=== PATIENT | male | born 1935 | race Caucasian/White ===

== ENCOUNTER 2021-02-25 14:12 | Observation (INO) | payer MEDICARE, BC ==
--- NOTE | 2021-02-25 14:38 | ED ---
General Adult HPI - General Chief complaint: Chest Pain Stated complaint: Chest Pain Time Seen by Provider: 02/25/21 14:26 Source: patient Mode of arrival: wheelchair Limitations: no limitations - History of Present Illness Initial comments: Dictation was produced using [employer] dictation software. please excuse any grammatical, word or spelling errors. Chief Complaint: 85-year-old male with extensive history of coronary artery disease presents with chest pain History of Present Illness: Is an 85-year-old male he has history of coronary artery bypass, coronary artery stents presents to the emergency department for chest pain since yesterday. Patient states that he has substernal chest discomfort. No radiation of symptoms to the shoulder job. Patient states that the pain is mild. No associated diaphoresis or nausea. Denies any pleurisy. He states however when he takes a deep breath his pain gets better. The ROS documented in this emergency department record has been reviewed and confirmed by me. Those systems with pertinent positive or negative responses have been documented in the HPI. All other systems are other negative and/or noncontributory. PHYSICAL EXAM: General Impression: Alert and oriented x3, not in acute distress HEENT: Normocephalic atraumatic, extra-ocular movements intact, pupils equal and reactive to light bilaterally, mucous membranes moist. Cardiovascular: Heart regular rate and rhythm Chest: Able to complete full sentences, no retractions, no tachypnea Abdomen: abdomen soft, non-tender, non-distended, no organomegaly Musculoskeletal: Pulses present and equal in all extremities, no peripheral edema Motor: no focal deficits noted Neurological: CN II-XII grossly intact, no focal motor or sensory deficits noted Skin: Intact with no visualized rashes Psych: Normal affect and mood ED course: 80-year-old male presents with atypical chest pain with typical features. He has extensive history. Vital signs upon arrival are within acceptable limits. wanted to go home and wanted to be called if patient is going to be discharged. Her phone number is [phone] Abdomen tender evaluation obtained. CBC unremarkable. Coag panel is negative. Metabolic panel is negative. Troponin is negative. Chest x-ray is nonacute. Patient reevaluated bedside and becoming more bradycardic. Patient was noted to be in the low 40s. Given the patient has chest pain and bradycardia will have him admitted to observation with consultation to cardiology. Patient given aspirin. EKG interpretation: Ventricular rate 46, sinus bradycardia, KY interval 296, QRS 100, QTC 446. No KY prolongation, no QTC prolongation, no ST or T-wave changes noted. No old EKG for comparison. Overall, this EKG is unremarkable - Related Data Home Medications Medication Instructions Recorded Confirmed Amiodarone [Cordarone] 200 mg PO DAILY 02/25/21 02/25/21 Apixaban [Eliquis] 2.5 mg PO BID 02/25/21 02/25/21 Clopidogrel [Plavix] 75 mg PO DAILY 02/25/21 02/25/21 Simvastatin [Zocor] 10 mg PO HS 02/25/21 02/25/21 atenoloL [Atenolol] 25 mg PO HS 02/25/21 02/25/21 lisinopriL [Zestril] 10 mg PO DAILY 02/25/21 02/25/21 Allergies Allergy/AdvReac Type Severity Reaction Status Date / Time No Known Allergies Allergy Verified 02/25/21 15:04 Review of Systems ROS Statement: Those systems with pertinent positive or pertinent negative responses have been documented in the HPI. ROS Other: All systems not noted in ROS Statement are negative. Past Medical History Past Medical History: Hyperlipidemia, Hypertension History of Any Multi-Drug Resistant Organisms: None Reported Past Surgical History: Coronary Bypass/CABG, Heart Catheterization With Stent Past Psychological History: No Psychological Hx Reported Smoking Status: Former smoker, Unknown if ever smoked Past Drug Use History: None Reported General Exam Limitations: no limitations Course Vital Signs 02/25/21 02/25/21 02/25/21 14:20 15:00 15:25 Temperature 97.7 F Pulse Rate 50 L 42 L Pulse Rate [ 42 L [employer] ] Respiratory 20 16 Rate Blood Pressure 167/70 120/66 O2 Sat by Pulse 97 100 Oximetry Medical Decision Making - Lab Data Result diagrams: 02/25/21 14:39 02/25/21 14:39 Lab Results 02/25/21 02/25/21 02/25/21 Range/Units 14:39 14:39 14:39 WBC 8.1 (3.8-10.6) k/uL RBC 4.28 L (4.30-5.90) m/uL Hgb 13.5 (13.0-17.5) gm/dL Hct 38.5 L (39.0-53.0) % MCV 90.2 (80.0-100.0) fL MCH 31.5 (25.0-35.0) pg MCHC 34.9 (31.0-37.0) g/dL RDW 13.3 (11.5-15.5) % Plt Count 172 (150-450) k/uL MPV 6.9 Neutrophils % 69 % Lymphocytes % 21 % Monocytes % 6 % Eosinophils % 2 % Basophils % 1 % Neutrophils # 5.6 (1.3-7.7) k/uL Lymphocytes # 1.7 (1.0-4.8) k/uL Monocytes # 0.5 (0-1.0) k/uL Eosinophils # 0.2 (0-0.7) k/uL Basophils # 0.1 (0-0.2) k/uL PT 11.0 (9.0-12.0) sec INR 1.0 (<1.2) APTT 25.0 (22.0-30.0) sec Sodium 139 (137-145) mmol/L Potassium 4.3 (3.5-5.1) mmol/L Chloride 104 (98-107) mmol/L Carbon Dioxide 26 (22-30) mmol/L Anion Gap 9 mmol/L BUN 16 (9-20) mg/dL Creatinine 1.19 (0.66-1.25) mg/dL Est GFR (CKD-EPI)AfAm 63 (>60 ml/min/1.73 sqM) Est GFR (CKD-EPI)NonAf 55 (>60 ml/min/1.73 sqM) Glucose 111 H (74-99) mg/dL Calcium 8.9 (8.4-10.2) mg/dL Magnesium 2.2 (1.6-2.3) mg/dL Total Bilirubin 0.6 (0.2-1.3) mg/dL AST 31 (17-59) U/L ALT 20 (4-49) U/L Alkaline Phosphatase 91 (38-126) U/L Troponin I (0.000-0.034) ng/mL Total Protein 6.3 (6.3-8.2) g/dL Albumin 3.9 (3.5-5.0) g/dL 02/25/21 Range/Units 14:39 WBC (3.8-10.6) k/uL RBC (4.30-5.90) m/uL Hgb (13.0-17.5) gm/dL Hct (39.0-53.0) % MCV (80.0-100.0) fL MCH (25.0-35.0) pg MCHC (31.0-37.0) g/dL RDW (11.5-15.5) % Plt Count (150-450) k/uL MPV Neutrophils % % Lymphocytes % % Monocytes % % Eosinophils % % Basophils % % Neutrophils # (1.3-7.7) k/uL Lymphocytes # (1.0-4.8) k/uL Monocytes # (0-1.0) k/uL Eosinophils # (0-0.7) k/uL Basophils # (0-0.2) k/uL PT (9.0-12.0) sec INR (<1.2) APTT (22.0-30.0) sec Sodium (137-145) mmol/L Potassium (3.5-5.1) mmol/L Chloride (98-107) mmol/L Carbon Dioxide (22-30) mmol/L Anion Gap mmol/L BUN (9-20) mg/dL Creatinine (0.66-1.25) mg/dL Est GFR (CKD-EPI)AfAm (>60 ml/min/1.73 sqM) Est GFR (CKD-EPI)NonAf (>60 ml/min/1.73 sqM) Glucose (74-99) mg/dL Calcium (8.4-10.2) mg/dL Magnesium (1.6-2.3) mg/dL Total Bilirubin (0.2-1.3) mg/dL AST (17-59) U/L ALT (4-49) U/L Alkaline Phosphatase (38-126) U/L Troponin I <0.012 (0.000-0.034) ng/mL Total Protein (6.3-8.2) g/dL Albumin (3.5-5.0) g/dL Disposition Clinical Impression: Chest pain, Bradycardia Disposition: ADMITTED IP TO THIS [facility] Condition: Fair Referrals: Pedrito Davis MD [Primary Care Provider] - 1-2 days
--- NOTE | 2021-02-25 15:14 | XR ---
EXAMINATION TYPE: XR chest 1V portable DATE OF EXAM: 02/25/2021 COMPARISON: None INDICATION: Chest pain TECHNIQUE: Single frontal view of the chest is obtained. FINDINGS: The heart size is upper limits of normal. The pulmonary vasculature is normal. The lungs are clear. IMPRESSION: 1. Borderline cardiomegaly. 2. No acute pulmonary process.
[2021-02-25 15:24] LABS: Basophils # (A) 0.1 k/uL (0-0.2); Basophils % (A) 1 %; Eosinophils # (A) 0.2 k/uL (0-0.7); Eosinophils % (A) 2 %; HCT 38.5 % (39.0-53.0); HGB 13.5 gm/dL (13.0-17.5); Lymphocytes # (A) 1.7 k/uL (1.0-4.8); Lymphocytes % (A) 21 %; MCH 31.5 pg (25.0-35.0); MCHC 34.9 g/dL (31.0-37.0); MCV 90.2 fL (80.0-100.0); Mean Platelet Volume 6.9; Monocytes # (A) 0.5 k/uL (0-1.0); Monocytes % (A) 6 %; Neutrophils # (A) 5.6 k/uL (1.3-7.7); Neutrophils % (A) 69 %; Platelet Count 172 k/uL (150-450); RBC 4.28 m/uL (4.30-5.90); RDW 13.3 % (11.5-15.5); WBC 8.1 k/uL (3.8-10.6)
[2021-02-25 15:48] LABS: Albumin 3.9 g/dL (3.5-5.0); Calcium 8.9 mg/dL (8.4-10.2); Magnesium 2.2 mg/dL (1.6-2.3); Potassium 4.3 mmol/L (3.5-5.1); Total Bilirubin 0.6 mg/dL (0.2-1.3); Total Protein 6.3 g/dL (6.3-8.2)
[2021-02-25] MEDS ORDERED: NITROGLYCERIN SL TABS 0.4 MG TAB SUBLINGUAL PRN (16:11)
[2021-02-25] MEDS ORDERED: ASPIRIN 81 MG PO STA (16:11)
[2021-02-25] MEDS: APIXABAN 2.5 MG TABLET PO SCH (20:59)
[2021-02-25] MEDS ORDERED: ATORVASTATIN 10 MG TAB PO SCH (21:00)
[2021-02-25] MEDS ORDERED: TEMAZEPAM 15 MG CAP PO PRN (21:50)
[2021-02-25] MEDS ORDERED: ALPRAZolam 0.25 MG TAB PO PRN (21:50)
[2021-02-25] MEDS ORDERED: hydrALAZINE HCL 20 MG/ML 1 ML VIAL IVP PRN (21:50)
[2021-02-25] MEDS ORDERED: ACETAMINOPHEN TAB 500 MG TAB PO PRN (21:50)
[2021-02-25] MEDS: hydrALAZINE HCL 25 MG TAB PO SCH (22:24)
[2021-02-25] MEDS: PANTOPRAZOLE 40 MG TABLET PO SCH (22:24)
--- NOTE | 2021-02-26 06:24 | HP ---
HISTORY AND PHYSICAL DATE OF SERVICE: 02/25/2021 CHIEF COMPLAINT: Chest pain. HISTORY OF PRESENT ILLNESS: This 85-year-old gentleman with a past medical history of multiple medical problems including hypertension, hyperlipidemia, history of CABG, stent being followed by Dr. Davis in the outpatient apparently recently been to [place]. The patient ran out of the medications. The patient is complaining of chest pain which is felt in the lower part of the chest and the patient came to [facility]. Blood pressure elevated to 190 and the patient was admitted for further revaluation and treatment. Multiple medications were given. The patient also bradycardic. Beta blockers have been held. On admission he had negative troponins. EKG was personally reviewed by me, showed sinus bradycardia with ST-T changes. The chest x-ray was showing borderline cardiomegaly and cardiology consultation is being sought. There is no history of any fever, rigors or chills. PAST MEDICAL: Hypertension, hyperlipidemia, CAD, CABG. MEDICATIONS: Home medications are Zestril, atenolol, Zocor, Plavix, Eliquis, Cordarone. doses are reviewed. ALLERGIES: None. FAMILY HISTORY: No history of any heart disease or strokes in the family. SOCIAL HISTORY: Occasional alcohol intake. No history of substance abuse. No history of smoking. REVIEW OF SYSTEMS: ENT Diminished hearing and vision. CARDIOVASCULAR As mentioned earlier. RESPIRATORY As mentioned earlier. GI No nausea, vomiting, or diarrhea. No dysuria or hematuria. NERVOUS No numbness or weakness. ALLERGY/IMMUNOLOGY No asthma or hayfever. MUSCULOSKELETAL As mentioned earlier. HEMATOLOGY/ONCOLOGY Negative. ENDOCRINE No history of diabetes or hypothyroidism. CONSTITUTIONAL As mentioned earlier. DERMATOLOGY Negative. RHEUMATOLOGY Negative, PSYCHIATRY As mentioned earlier. PHYSICAL EXAMINATION: Alert and oriented x3. Pulse is 42, blood pressure 190/61, respiration 15, temperature 97.5, pulse ox 98% on room air. HEENT: Conjunctivae normal. Oral mucosa moist. NECK: No jugular venous distention. No lymph node enlargement. CARDIOVASCULAR: S1, S2, muffled. No S3, no S4, RESPIRATORY: Diminished breath sounds at the bases. A few scattered rhonchi and crackles. ABDOMEN: Soft, nontender. No mass palpable. LEGS: No edema, no swelling. NERVOUS SYSTEM: Higher functions mentioned earlier. Moves all four limbs. No focal motor or sensory deficits. LYMPHATICS: No lymph node in neck or axilla. SKIN: No rash. JOINTS: No active deforming arthropathy. LABS: WBC l8, hemoglobin 13.5, glucose 111. ASSESSMENT: 1. Chest pain, possible unstable angina. 2. Accelerated hypertension with hypertensive urgency. 3. Sinus bradycardia with ST-T changes, nonspecific. 4. Hypertension. 5. Hyperlipidemia. 6. History of CAD, CABG, stent. 7. Remote history of nicotine dependence. RECOMMENDATIONS AND DISCUSSION: In this 85-year-old gentleman who presented with multiple complex medical issues, we will monitor the patient closely, continue the current medications, stop the beta blockers, amiodarone, cardiology consultation, hydralazine p.r.n. and p.o. Otherwise, DVT prophylaxis. Patient is on Eliquis. Prognosis guarded. Further recommendations to follow. MMODL / LIBRADON: [id number] /
[2021-02-26 07:45] VITALS: BP 152/69; RESP 18; TEMP 98
--- NOTE | 2021-02-26 08:31 | P.CRDCN ---
History of Present Illness Consult date: 02/26/21 History of present illness: HISTORY OF PRESENT ILLNESS: This is a 85-year-old male with a past medical history significant for hypertension, hyperlipidemia, coronary artery disease with CABG 1 vessel per patient and subsequent stenting. Patient does not follow with a barbed wire machine operator in [place]. Patient states he lives part-time in [place] and part-time in [place]. He states he follows with a barbed wire machine operator at the [facility] in [place]. We have been asked to see the patient in consultation for chest pain. Patient examined at the bedside. Patient is somewhat of a poor historian. Patient states he initially came to the hospital to have a lesion removed off of his arm. Then he stated that he came to the hospital to have a lesion removed off of his chest. Initially the patient denied having any chest pain. Then the patient states he remembers he was having some very light chest pressure yesterday. He states the pain lasted for a couple hours and was gone when he came to the emergency room. He denied any radiation of the pain. He denied shortness of breath. He denied any dizziness or lightheadedness. The patient was found to be bradycardic upon admission. His beta adarsh has been held. The patient is prescribed Eliquis on an outpatient basis. Patient is unsure of the reason why he takes Eliquis. He states to his knowledge he does not have a history of DVT, PE, or atrial fibrillation. Patient states he ran out 2 of his medications for the past week. Patient states one of them was his Plavix but he cannot remember the other medication that he ran out of. EKG reveals sinus bradycardia with first-degree AV block and nonspecific ST-T wave changes Chest xray borderline cardiomegaly. No acute pulmonary process. Laboratory data: WBC 8.1. Hemoglobin 13.5. Platelet count 172. Sodium 139. Potassium 4.3. BUN 16. Creatinine 1.19. Magnesium 2.2. Troponin negative 3. Current home cardiac medications include lisinopril 10 mg daily, atenolol 25 mg daily, simvastatin 10 mg daily, Plavix 75 mg daily, Eliquis 2.5 mg twice a day, and amiodarone 200 mg daily REVIEW OF SYSTEMS: At the time of my exam: CONSTITUTIONAL: Denies fever or chills. HEENT: Denies blurred vision, vision changes, or eye pain. Denies hemoptysis CARDIOVASCULAR: Denies chest pain. Denies orthopnea. Denies PND. Denies palpitations RESPIRATORY: Denies shortness of breath. GASTROINTESTINAL: Denies abdominal pain. Denies nausea or vomiting. HEMATOLOGIC: Denies bleeding disorders. GENITOURINARY: Denies any blood in urine. SKIN: Denies pruitis. Denies rash. PHYSICAL EXAM: VITAL SIGNS: Reviewed. GENERAL: Well-developed in no acute distress. HEENT: Head is normocephalic. Pupils are equal, round. Sclerae anicteric. Mucous membranes of the mouth are moist. Neck supple. No JVD or thyromegaly LUNGS: Respirations even and unlabored. Lungs essentially clear to auscultation bilaterally. HEART: Regular rate and rhythm. S1 and S2 heard. ABDOMEN: Soft. Nondistended. Nontender. EXTREMITIES: Normal range of motion. No clubbing or cyanosis. Peripheral pulses intact. No lower extremity edema NEUROLOGIC: Awake and alert. Oriented x 3. ASSESSMENT: Chest pain, troponins negative 3 Hypertension Hyperlipidemia Asymptomatic bradycardia Long-term anticoagulation, reason unknown, suspect secondary to atrial fibrillation as patient is also prescribed amiodarone Coronary artery disease with previous CABG 1 and subsequent PCI Former nicotine dependence PLAN: An acute coronary event has been ruled out Resume home cardiac medications Resume beta adarsh at lower dose Discontinue amio Check TSH Obtain 2-D echo to assess cardiac structure and function Stable for discharge home today from a cardiac standpoint We will sign off. Please reconsult if needed Nurse practitioner note has been reviewed by physician. Signing provider agrees with the documented findings, assessment, and plan of care. Past Medical History Past Medical History: Hyperlipidemia, Hypertension History of Any Multi-Drug Resistant Organisms: None Reported Past Surgical History: Coronary Bypass/CABG, Heart Catheterization With Stent Past Anesthesia/Blood Transfusion Reactions: No Reported Reaction Date of Last Stent Placement:: 1987 Past Psychological History: No Psychological Hx Reported Smoking Status: Former smoker, Unknown if ever smoked Past Drug Use History: None Reported - Past Family History Mother Family Medical History: No Reported History Father Additional Family Medical History / Comment(s): Pt. reports his father went back to [place] when he was born Medications and Allergies Home Medications Medication Instructions Recorded Confirmed Type Apixaban [Eliquis] 2.5 mg PO BID 02/25/21 02/25/21 History Clopidogrel [Plavix] 75 mg PO DAILY 02/25/21 02/25/21 History Simvastatin [Zocor] 10 mg PO HS 02/25/21 02/25/21 History lisinopriL [Zestril] 10 mg PO DAILY 02/25/21 02/25/21 History Allergies Allergy/AdvReac Type Severity Reaction Status Date / Time No Known Allergies Allergy Verified 02/25/21 15:04 Physical Exam Vitals: Vital Signs Temp Pulse Pulse Pulse Resp BP BP 02/26/21 07:00 98.0 F 46 L 18 152/69 02/26/21 00:51 14 02/26/21 00:17 97.7 F 54 L 14 149/62 02/25/21 22:23 161/78 02/25/21 20:00 42 L 50 L 15 02/25/21 19:40 98.0 F 49 L 10 L 193/79 02/25/21 19:03 97.5 F L 50 L 15 199/69 02/25/21 18:21 43 L 18 173/76 02/25/21 17:00 46 L 18 154/73 02/25/21 16:55 42 L 16 185/82 02/25/21 15:25 42 L 16 120/66 02/25/21 15:00 42 L 02/25/21 14:20 97.7 F 50 L 20 167/70 Pulse Ox 02/26/21 07:00 97 02/26/21 00:51 02/26/21 00:17 100 02/25/21 22:23 02/25/21 20:00 02/25/21 19:40 96 02/25/21 19:03 99 02/25/21 18:21 98 02/25/21 17:00 98 02/25/21 16:55 98 02/25/21 15:25 100 02/25/21 15:00 02/25/21 14:20 97 Intake and Output 02/25/21 02/26/21 02/26/21 22:59 06:59 14:59 Intake Total 200 Balance 200 Intake: Oral 200 Other: Voiding Method Toilet Toilet # Voids 1 3 Weight 93.44 kg Results 02/26/21 04:58 02/26/21 05:42 Cardiac Enzymes 06/25/21 06/25/21 06/25/21 Range/Units 14:39 14:39 17:30 AST 31 (17-59) U/L Troponin I <0.012 <0.012 (0.000-0.034) ng/mL 02/25/21 Range/Units 18:19 AST (17-59) U/L Troponin I <0.012 (0.000-0.034) ng/mL Coagulation 02/25/21 Range/Units 14:39 PT 11.0 (9.0-12.0) sec APTT 25.0 (22.0-30.0) sec CBC 02/25/21 Range/Units 14:39 WBC 8.1 (3.8-10.6) k/uL RBC 4.28 L (4.30-5.90) m/uL Hgb 13.5 (13.0-17.5) gm/dL Hct 38.5 L (39.0-53.0) % Plt Count 172 (150-450) k/uL Comprehensive Metabolic Panel 02/25/21 Range/Units 14:39 Sodium 139 (137-145) mmol/L Potassium 4.3 (3.5-5.1) mmol/L Chloride 104 (98-107) mmol/L Carbon Dioxide 26 (22-30) mmol/L BUN 16 (9-20) mg/dL Creatinine 1.19 (0.66-1.25) mg/dL Glucose 111 H (74-99) mg/dL Calcium 8.9 (8.4-10.2) mg/dL AST 31 (17-59) U/L ALT 20 (4-49) U/L Alkaline Phosphatase 91 (38-126) U/L Total Protein 6.3 (6.3-8.2) g/dL Albumin 3.9 (3.5-5.0) g/dL Current Medications Generic Name Dose Route Start Last Admin Trade Name Freq PRN Reason Stop Dose Admin Acetaminophen 500 mg 02/25/21 21:50 Acetaminophen Tab 500 Mg Tab PO Q6HR PRN Fever and/ or Pain Alprazolam 0.25 mg 02/25/21 21:50 Alprazolam 0.25 Mg Tab PO TID PRN Anxiety Apixaban 2.5 mg 02/25/21 21:00 02/25/21 20:59 Apixaban 2.5 Mg Tablet PO 2.5 mg BID SUSANNA Administration Protocol Aspirin 325 mg 02/26/21 09:00 Aspirin 325 Mg Tab PO DAILY [facility] Atorvastatin Calcium 10 mg 02/25/21 21:00 02/25/21 21:00 Atorvastatin 10 Mg Tab PO 10 mg HS SUSANNA Administration Clopidogrel Bisulfate 75 mg 02/26/21 09:00 Clopidogrel 75 Mg Tab PO DAILY [facility] Hydralazine HCl 10 mg 02/25/21 21:50 Hydralazine Hcl 20 Mg/Ml 1 Ml Vial IVP Q4HR PRN Blood Pressure - High Hydralazine HCl 75 mg 02/25/21 22:00 02/25/21 22:24 Hydralazine Hcl 25 Mg Tab PO 75 mg TID SUSANNA Administration Lisinopril 10 mg 02/26/21 09:00 Lisinopril 10 Mg Tab PO DAILY [facility] Nitroglycerin 0.4 mg 02/25/21 16:11 02/25/21 16:57 Nitroglycerin Sl Tabs 0.4 Mg Tab SUBLINGUAL 0.4 mg Q5M PRN Administration Chest Pain Pantoprazole Sodium 40 mg 02/25/21 22:00 02/25/21 22:24 Pantoprazole 40 Mg Tablet PO 40 mg [id number] SUSANNA Administration Temazepam 15 mg 02/25/21 21:50 Temazepam 15 Mg Cap PO HS PRN Insomnia Intake and Output 02/25/21 02/26/21 02/26/21 22:59 06:59 14:59 Intake Total 200 Balance 200 Intake: Oral 200 Other: Voiding Method Toilet Toilet # Voids 1 3 Weight 93.44 kg 02/25/21 14:39 02/25/21 14:39
[2021-02-26] MEDS: PANTOPRAZOLE 40 MG TABLET PO SCH (08:46)
[2021-02-26] MEDS: hydrALAZINE HCL 25 MG TAB PO SCH (08:46)
[2021-02-26] MEDS: APIXABAN 2.5 MG TABLET PO SCH (08:47)
--- NOTE | 2021-02-26 08:52 | HP ---
HISTORY AND PHYSICAL CHIEF COMPLAINT: Chest pain. HISTORY OF PRESENT ILLNESS: This is another admission for this 85-year-old white male who has had a previous history of coronary artery disease and has had a coronary artery bypass. He also has some dementia. He came to the emergency room with a complaint of chest pain and was found to have a bradycardia of around 40 beats per minute. Because of his dementia, he is not able to give a very accurate description of his recent history or symptoms. REVIEW OF SYSTEMS: He denies diaphoresis, shortness of breath, nausea, vomiting, syncope, etc. PAST MEDICAL HISTORY, FAMILY HISTORY AND PERSONAL HISTORY: Demonstrated he is not allergic to any medication. He takes atenolol 25 mg once a day, lisinopril 5 mg once a day, amiodarone 100 mg once a day, Eliquis 2.5 once a day, and simvastatin 10 mg once a day. The major of his history is unremarkable otherwise and he has been able to remain fairly healthy despite his past coronary artery problems and dementia. PHYSICAL EXAMINATION: Blood pressure 172/76 with a pulse of 43. Respirations were 17. He is afebrile. Generally, he appeared to be slender and in no acute distress. He is awake and alert. Skin color is normal. He is well hydrated. Head, ears, eyes, nose, mouth and throat were normal. Neck veins not distended. Carotids are normal. The chest is clear. Cardiac exam demonstrated what sounded like a sinus bradycardia. The abdomen is soft and nontender without any visceromegaly or masses. Bowel sounds present. Extremities normal. Neurologically, he was intact except for some cognitive difficulty. He was admitted to the hospital with: DIAGNOSES: 1. Chest pain. 2. Bradycardia. 3. History of coronary artery disease status post coronary artery bypass grafting. 4. Dementia. PLAN: 1. Bedrest. 2. IV fluids. 3. Serial EKGs and enzymes. 4. Cardiology consult. MMODL / IJN: [id number] /
[2021-02-26] MEDS ORDERED: ASPIRIN 325 MG TAB PO SCH (09:00)
[2021-02-26] MEDS ORDERED: lisinopriL 10 MG TAB PO SCH (09:00)
[2021-02-26] MEDS ORDERED: CLOPIDOGREL 75 MG TAB PO SCH (09:00)
[2021-02-26 09:21] LABS: Basophils # (A) 0.06 X 10*3/uL (0.00-0.10); Basophils % (A) 0.8 %; Eosinophils # (A) 0.17 X 10*3/uL (0.04-0.35); Eosinophils % (A) 2.4 %; HGB 13.1 g/dL (13.0-17.0); Lymphocytes # (A) 2.09 X 10*3/uL (0.90-5.00); Lymphocytes % (A) 29.1 %; MCH 31.5 pg (27.0-32.0); MCHC 34.5 g/dL (32.0-37.0); MCV 91.3 fL (80.0-97.0); Mean Platelet Volume 9.4 fL (9.5-12.2); Monocytes # (A) 0.62 X 10*3/uL (0.20-1.00); Monocytes % (A) 8.6 %; Neutrophils # (A) 4.23 X 10*3/uL (1.80-7.70); Neutrophils % (A) 58.8 %; Platelet Count 153 X 10*3/uL (140-440); RBC 4.16 X 10*6/uL (4.40-5.60); RDW 13.3 % (11.5-14.5); WBC 7.19 X 10*3/uL (4.50-10.00)
[2021-02-26 09:50] VITALS: PULSE 47
[2021-02-26 10:10] LABS: African American GFR (CKD) 62.6 (60.0-200.0); Anion Gap 7.7 mmol/L (4.00-12.00); BUN/Creat Ratio 11.67 Ratio (12.00-20.00); Calcium 8.3 mg/dL (8.7-10.3); Carbon Dioxide 26.3 mmol/L (21.6-31.8); Chol/HDL Ratio 4.26; LDL Cholesterol,Calculated 75.4 mg/dL (0.0-131.0); Potassium 3.8 mmol/L (3.5-5.5); VLDL Calculation 25.6 mg/dL (5.00-40.00)
[2021-02-26] MEDS ORDERED: Magnesium Replacement Protocol 1 EACH MISC MISCELLANE PRN (12:36)
[2021-02-26] MEDS ORDERED: Potassium Replacement Protocol 1 EACH MISC MISCELLANE PRN (12:36)
[2021-02-26] MEDS ORDERED: MAGNESIUM SULFATE-D5W PMX 1 GM in DEXTROSE/WATER 1 100ML.BAG IVPB SCH (12:45)
--- NOTE | 2021-02-26 16:57 | DS ---
DISCHARGE SUMMARY FINAL DIAGNOSIS: 1. Chest pain, mild myocardial infarction ruled out, possible unstable angina. 2. Accelerated hypertension with hypertensive urgency. 3. Sinus bradycardia with ST-T changes, nonspecific. 4. Hypertension. 5. Hyperlipidemia. 6. History of CAD, CABG stent. 7. History of nicotine dependence. DISCHARGE CONDITION: The patient discharged in stable condition. Guarded prognosis. Discharge cleared by Cardiology. HISTORY OF PRESENT ILLNESS: An 85-year-old gentleman with a past medical history of multiple myeloma being worked up for chest pain. Patient also has accelerated hypertension. Medication adjusted. Patient was seen by cardiology who saw the patient recommend outpatient followup. PHYSICAL EXAMINATION: On exam, vitals are stable. Cardiovascular normal. Abdomen soft. Nervous system normal. DISCHARGE ADVICE AND MEDICATIONS: Diet is cardiac diet. Followup with Dr. Davis in 1-2 days follow up with Dr. Kary Roth in 1 week. DISCHARGE MEDICATIONS ARE FOLLOWS: 1. Eliquis 2.5 mg b.i.d. 2. Zestril 10 mg daily. 3. Zocor 10 mg q.h.s. 4. Hydralazine 75 mg p.o. t.i.d. 5. Plavix 75 mg p.o. daily. 6. Protonix 40 mg p.o. daily. 7. Tenormin 12.5 mg p.o. daily. Please note changed dose once. MMOLIVIERL / LIBRADON: [id number] /
--- NOTE | 2021-02-27 07:38 | ECHOF ---
Referral Reason:chest pain MEASUREMENTS -------- HEIGHT: 182.9 cm WEIGHT: 93.4 kg BP: RVIDd: 4.0 cm (< 3.3) IVSd: 1.0 cm (0.6 - 1.1) LVIDd: 5.5 cm (3.9 - 5.3) LVPWd: 1.3 cm (0.6 - 1.1) IVSs: 2.1 cm LVIDs: 2.6 cm LVPWs: 1.7 cm Ao Diam: 3.8 cm (2.0 - 3.7) AV Cusp: 2.2 cm (1.5 - 2.6) LA Diam: 3.9 cm (2.7 - 3.8) MV EXCURSION: 14.577 mm (> 18.000) MV EF SLOPE: 26 mm/s (70 - 150) EPSS: 1.1 cm MV E Meir: 0.73 m/s MV DecT: 404 ms MV A Meir: 0.54 m/s MV E/A Ratio: 1.35 AR PHT: 1665 ms RAP: 5.00 mmHg RVSP: 29.78 mmHg FINDINGS -------- This was a technically adequate study. The left ventricular size is normal. There is mild concentric left ventricular hypertrophy. Overa ll left ventricular systolic function is normal with, an EF between 55 - 60 %. The right ventricle is moderately enlarged. The left atrial size is normal. The right atrial size is normal. Aortic valve is trileaflet and is mildly thickened. There is mild aortic regurgitation. The mitral valve is normal. The mitral valve leaflets are mildly thickened. Mild mitral regurgita tion is present. The tricuspid valve appears structurally normal. Mild tricuspid regurgitation present. Right vent ricular systolic pressure is normal at < 35 mmHg. There is no pulmonic regurgitation present. The aortic root size is normal. IVC Not well visulized. There is no pericardial effusion. CONCLUSIONS -------- 1. The left ventricular size is normal. 2. There is mild concentric left ventricular hypertrophy. 3. Overall left ventricular systolic function is normal with, an EF between 55 - 60 %. 4. The right ventricle is moderately enlarged. 5. Aortic valve is trileaflet and is mildly thickened. 6. There is mild aortic regurgitation. 7. The mitral valve leaflets are mildly thickened. 8. Mild mitral regurgitation is present. 9. Mild tricuspid regurgitation present. 10. There is no pericardial effusion. COMPUTATOR: aNdia Ndiaye RDCS
--- NOTE | 2021-02-28 22:41 | DS ---
DISCHARGE SUMMARY DATE OF ADMISSION: 02/25/2021. DATE OF DISCHARGE: February 26, 2021 CHIEF COMPLAINT: Chest pain. HISTORY OF PRESENT ILLNESS AND PHYSICAL EXAMINATION: Details of this man's history and physical can be found in the initial workup. LABORATORY STUDIES: While he was in the hospital, he had lab studies details which can be found in the laboratory section of his chart. COURSE IN THE HOSPITAL: After admission, he was placed on bedrest, started on intravenous fluids and had serial EKGs and enzymes. He was seen by Cardiology and it was felt he could be discharged on February 26 to be followed up in the office. FINAL DIAGNOSES: 1. Chest pain. 2. History of coronary artery disease and coronary artery bypass grafting. 3. Mild dementia. OPERATIONS: None. CONSULTATIONS: Cardiology. He is improved. MMOLIVIERL / MONO: [id number] /
== END 2021-02-26 14:31 | disposition home or self-care (01) ==
LOC: EC 14:12 → 6NMEDSUR 16:12
PROVIDERS: ADMIT Family Medicine; ATTEND Family Medicine
DX: R07.89 Other chest pain (principal); I16.0 Hypertensive urgency; R00.1 Bradycardia, unspecified; I10 Essential (primary) hypertension; Z20.822 Contact with and (suspected) exposure to COVID-19; E78.5 Hyperlipidemia, unspecified; I25.10 Atherosclerotic heart disease of native coronary artery without angina pectoris; F03.90 Unspecified dementia, unspecified severity, without behavioral disturbance, psychotic disturbance, mood disturbance, and anxiety; I44.0 Atrioventricular block, first degree; Z79.899 Other long term (current) drug therapy; Z79.02 Long term (current) use of antithrombotics/antiplatelets; Z79.01 Long term (current) use of anticoagulants; Z87.891 Personal history of nicotine dependence; Z95.1 Presence of aortocoronary bypass graft; Z95.5 Presence of coronary angioplasty implant and graft
CPT/HCPCS: 93005 ×2; 99285; 36415; 94760; 93306; 80061; 80053; 80048; 84443; 83735; 84484; 85025 ×2; 85610; 85730; 87635; 71045; G0378 ×2

== ENCOUNTER → 2022-02-09 | Outpatient (CLI) | payer MEDICARE, BC ==
[2022-02-09 22:33] LABS: Basophils # (A) 0.05 X 10*3/uL (0.00-0.10); Basophils % (A) 0.6 %; Eosinophils # (A) 0.27 X 10*3/uL (0.04-0.35); Eosinophils % (A) 3.2 %; HCT 38.2 % (39.6-50.0); HGB 12.3 g/dL (13.0-17.0); Immature Grans, Automated 0.5 %; Lymphocytes # (A) 2.06 X 10*3/uL (0.90-5.00); Lymphocytes % (A) 24.3 %; MCH 30.7 pg (27.0-32.0); MCHC 32.2 g/dL (32.0-37.0); MCV 95.3 fL (80.0-97.0); Mean Platelet Volume 9.7 fL (9.5-12.2); Monocytes # (A) 0.66 X 10*3/uL (0.20-1.00); Monocytes % (A) 7.8 %; NRBC Per 100 WBC 0 /100 WBCS (0.0-0.0); Neutrophils % (A) 63.6 %; Platelet Count 209 X 10*3/uL (140-440); RBC 4.01 X 10*6/uL (4.40-5.60); RDW 13.4 % (11.5-14.5); WBC 8.48 X 10*3/uL (4.50-10.00)
[2022-02-09 23:54] LABS: African American GFR (CKD) 39.7 (60.0-200.0); Albumin 4.1 g/dL (3.8-4.9); Albumin/Globulin Ratio 1.78 (1.60-3.17); Anion Gap 9.3 mmol/L (10.00-18.00); BUN/Creat Ratio 9.71 Ratio (12.00-20.00); Blood Urea Nitrogen 16.9 mg/dL (9.0-27.0); Calcium 8.9 mg/dL (8.7-10.3); Carbon Dioxide 25.5 mmol/L (20.0-27.5); Globulin 2.3 g/dL (1.6-3.3); Non-African American GFR(CKD) 34.3 (60.0-200.0); Potassium 4.5 mmol/L (3.5-5.5); Total Bilirubin 0.4 mg/dL (0.30-1.20); Total Protein 6.5 g/dL (6.2-8.2)
== END | disposition home or self-care (01) ==
LOC: LABWHC1 13:52
PROVIDERS: ATTEND Family Medicine
DX: I12.9 Hypertensive chronic kidney disease with stage 1 through stage 4 chronic kidney disease, or unspecified chronic kidney disease (principal); D69.9 Hemorrhagic condition, unspecified; N18.9 Chronic kidney disease, unspecified
CPT/HCPCS: 36415; 80053; 85025